=== PATIENT | male | born 1965 | race Caucasian/White ===

== ENCOUNTER 2024-06-02 14:37 | Emergency (ER) | payer OTHER ==
[~2024-06-02] VITALS: Ht 182.9 cm; Wt 101.6 kg
[~2024-06-02 14:37] MED LIST: CRESTOR10 MG
[2024-06-02 18:31] VITALS: BP 126/91
== END 2024-06-02 18:33 | disposition home or self-care (01) ==
LOC: ED 14:37
DX: S60.222A Contusion of left hand, initial encounter (principal); S40.012A Contusion of left shoulder, initial encounter; W00.0XXA Fall on same level due to ice and snow, initial encounter; E78.5 Hyperlipidemia, unspecified; Z79.899 Other long term (current) drug therapy
CPT/HCPCS: 73030; 73110; 99283